=== PATIENT | female | born 1950 | race Caucasian/White ===

== ENCOUNTER 2021-06-22 07:15 | Emergency (ER) | payer OTHER ==
--- OUTSIDE RECORDS SUMMARY | 2021-06-22 07:18 | XMS REPORT | Continuity of Care Document ---
:1950 Author Organization [facility] t Address [address] [place] [address] Care Team Providers Name Role Phone BURCIAGA, Jennifer Attending Clinician Unavailable Joseph Jeter DO Attending Clinician Jeanette Pastor MD Attending Clinician Doctor Unassigned, Name Attending Clinician Unavailable Physician, Primary or Family Admitting Clinician Unavailabl e Payers Payer Name Policy Type Policy Number Effective Date Expiration Date S ource Problems Condition Condition Condition Status Onset Resolution Last Treating Co mments Source Name Details Category Date Date Treatment Clinician Date Intermitte Intermitte Disease Active 2019- U nivers nt chest nt chest 2-08 ity of pain pain 00:00: [place] [id number] Medical Branch Intermitte Intermitte Disease Active 2019- U nivers nt nt 2-08 ity of vomiting vomiting 00:00: [place] [address] Medical Branch History of History of Disease Active 2019- U nivers cardiac cardiac 2-06 [place]y [place] Hair loss Hair loss Disease Active 2019-0 Uni vers 7-01 ity of 00:00: [place] [address] Medical Branch Upper back Upper back Disease Active 2019-0 U nivers pain pain 7-01 ity of 00:00: [place] [address] Medical Branch Well woman Well woman Disease Active 2019-0 U nivers exam with exam with 1-31 ity of routine routine 00:00: [place] gynecologi gynecologi 00 Mo dical tiffanie exam tiffanie exam Branch Prediabete Prediabete Disease Active 2019-0 U nivers s s 1-27 ity of 00:00: [place] [address] Medical Branch Allergic Allergic Disease Active Unive rs rhinitis rhinitis 07-31 ity of 00:00: [place] 00 Medical [place] Cerebrovas Cerebrovas Disease Active U nivers cular cular 3- ity of small small 00:00: [place] vessel vessel 00 Medical disease disease Branch Chronic Chronic Disease Active Univers intractabl intractabl 2- it y of e e 00:00: [place] headache, headache, [facility] unspecifie unspecifie Br anch d headache d headache type type Essential Essential Disease Active Uni vers hypertensi hypertensi 2 it y of on on 00:00: [place] 00 [facility] Dry eyes Dry eyes Disease Active Unive rs ity of [facility] Vitamin D Vitamin D Disease Active Uni vers deficiency deficiency it y of [facility] Hyperlipid Hyperlipid Disease Active U nivers emia emia ity of [facility] Allergies, Adverse Reactions, Alerts Allergy Allergy Status Severity Reaction(s) Onset Inactive Treating Comm ents Source Name Type Date Date Clinician erythrom DA Active [place] [facility]- [facility] [place] [facility] 00:[facility]: d 00 [facility] [place] erythrom DA Active [place] NAUSE[facility] VOMIT[facility] 02-12 [place] [facility] 00:00: d 00 Medical [place] Social History Social Habit Start Date Stop Date Quantity Comments Source Tobacco use and 2019-06-11 2019-06-[address] [facility] exposure 00:00:00 00:00:00 [facility] Alcohol intake 2019-06-11 2019-06-11 Current University of 00:00:00 00:00:00 non-drinker of [facility] alcohol Branch (finding) Sex Ass[birth year] At [birth year] Universit y of 00:00:00 00:00:00 [facility] Smoking Status Start Date Stop Date Source Unknown if ever smoked [facility] Never smoker [facility] Medications Ordered Filled Start Stop Current Ordering Indication Dosage Frequency Signature Comments Components Source Medication Medication Date Date Medication? Clinician (SIG) Name Name eszopiclone 2018-07 Yes 2mg Take 2 mg U nivers 2 mg tablet 2-06 by mouth ity of 22:41: at [place] 29 bedtime. Medical Branch esomeprazol 2018-07 Yes 40mg Take 40 mg Univers e (NEXIUM) 2-06 by mouth ity o f 40 mg 22:41: as needed. [address] eszopiclone 2018-07 Yes 2mg Take 2 mg U nivers 2 mg tablet 2-06 by mouth ity of 22:41: at [place] [address] bedtime. Medical Branch esomeprazol 2018-07 Yes 40mg Take 40 mg Univers e (NEXIUM) 2-06 by mouth ity o f 40 mg 22:41: as needed. [address] eszopiclone 2018-07 Yes 2mg Take 2 mg U nivers 2 mg tablet 2-06 by mouth ity of 22:41: at [place] [address] bedtime. [facility] esomeprazol 2018-07 Yes 40mg Take 40 mg Univers e (NEXIUM) 2-06 by mouth ity o f 40 mg 22:41: as needed. [address] eszopiclone 2018-07 Yes 2mg Take 2 mg U nivers 2 mg tablet 2-06 by mouth ity of 22:41: at [place] [address] bedtime. [facility] Branch esomeprazol 2018-07 Yes 40mg Take 40 mg Univers e (NEXIUM) 2-06 by mouth ity o f 40 mg 22:41: as needed. [address] cholecalcif 2018-07 Yes 1{tbl} Take 1 Un jaiden elton, 2-06 tablet by ity of vitamin D3, 22:13: mouth [place] (VITAMIN D3 55 daily. Medica l ORAL) Branch cholecalcif 2018-07 Yes 1{tbl} Take 1 Un jaiden [place], 2-06 tablet by ity of vitamin D3, 22:13: mouth [place] (VITAMIN D3 55 daily. Medica l ORAL) Branch cholecalcif 2018-07 Yes 1{tbl} Take 1 Un jaiden [place], 2-06 tablet by ity of vitamin D3, 22:13: mouth [place] (VITAMIN D3 55 daily. Medica l ORAL) Branch cholecalcif 2018-07 Yes 1{tbl} Take 1 Un jaiden [place], 2-06 tablet by ity of vitamin D3, 22:13: mouth [place] (VITAMIN D3 55 daily. Medica l ORAL) Branch losartan 2018-07 Yes [id number] TAKE ONE U nivers 100 mg 2-06 (1) ity of tablet 00:00: TABLET(S) [place] 00 BY MOUTH Medical ONCE A Branch DAY. tiZANidine 2018-07 Yes [id number] 2mg Take 0.5-1 Univers 4 mg tablet 2-06 [id number] tablets by ity of 00:00: mouth [place] 00 every 8 Medical (eight) Branch hours as needed (muscle pain or spasm). losartan 2018-07 Yes [id number] TAKE ONE U nivers 100 mg 2-06 (1) ity of tablet 00:00: TABLET(S) [place] 00 BY MOUTH Medical ONCE A Branch DAY. tiZANidine 2018-07 Yes [id number] 2mg Take 0.5-1 Univers 4 mg tablet 2-06 [id number] tablets by ity of 00:00: mouth [place] 00 every 8 Medical (eight) Branch hours as needed (muscle pain or spasm). losartan 2018-07 Yes [id number] TAKE ONE U nivers 100 mg 2-06 (1) ity of tablet 00:00: TABLET(S) [place] 00 BY MOUTH Medical ONCE A Branch DAY. tiZANidine 2018-07 Yes [id number] 2mg Take 0.5-1 Univers 4 mg tablet 2-06 [id number] tablets by ity of 00:00: mouth [place] 00 every 8 Medical (eight) Branch hours as needed (muscle pain or spasm). losartan 2018-07 Yes [id number] TAKE ONE U nivers 100 mg 2-06 (1) ity of tablet 00:00: TABLET(S) [place] 00 BY MOUTH Medical ONCE A Branch DAY. tiZANidine 2018-07 Yes [id number] 2mg Take 0.5-1 Univers 4 mg tablet 2-06 [id number] tablets by ity of 00:00: mouth [place] 00 every 8 Medical (eight) Branch hours as needed (muscle pain or spasm). amLODIPine 2018-07 Yes [id number] TAKE 1 U nivers 5 mg tablet 2-01 TABLET BY ity of 00:00: MOUTH [place] 00 DAILY Medical Branch amLODIPine 2018-07 Yes [id number] TAKE 1 U nivers 5 mg tablet 2-01 TABLET BY ity of 00:00: MOUTH [place] 00 DAILY Medical Branch amLODIPine 2018-07 Yes [id number] TAKE 1 U nivers 5 mg tablet 2-01 TABLET BY ity of 00:00: MOUTH [place] 00 DAILY Medical Branch amLODIPine 2018-07 Yes [id number] TAKE 1 U nivers 5 mg tablet 2-01 TABLET BY ity of 00:00: MOUTH [place] 00 DAILY Medical Branch montelukast 2019-0 Yes [id number] 10mg Take 1 Univers 10 mg 3-29 tablet by ity of tablet 00:00: mouth [place] 00 every Medical evening. Branch montelukast 2019-0 Yes [id number] 10mg Take 1 Univers 10 mg 3-29 tablet by ity of tablet 00:00: mouth [place] 00 every Medical evening. Branch montelukast 2019-0 Yes [id number] 10mg Take 1 Univers 10 mg 3-29 tablet by ity of tablet 00:00: mouth [place] 00 every Medical evening. Branch montelust 2019- Yes [id number] 10mg Take 1 Univers 10 mg 3-29 tablet by ity of tablet 00:00: mouth [place] 00 every Medical evening. Branch No known No Univers medications ity of [facility] Immunizations Ordered Filled Immunization Date Status Comments [facility] e Immunization Name Name Influenza High Dose 2019-03-15 Completed Unive rsity of 00:00:00 [facility] Influenza High Dose 2019-03-15 Completed Unive rsity of 00:00:00 [facility] Influenza High Dose 2019-03-15 Completed Unive rsity of 00:00:00 [facility] Influenza High Dose 2019-03-15 Completed Unive rsity of 00:00:00 [facility] Influenza High Dose 2018-04-21 Completed Unive rsity of 00:00:00 [facility] Influenza High Dose 2018-04-21 Completed Unive rsity of 00:00:00 [facility] Influenza High Dose 2018-04-21 Completed Unive rsity of 00:00:00 [facility] Influenza High Dose 2018-04-21 Completed Unive rsity of 00:00:00 [facility] Typhoid, 2017-11-29 Completed University of Unspecified 00:00:00 [facility] Typhoid, 2017-11-29 Completed University of Unspecified 00:00:00 [facility] Typhoid 2017-11-29 Completed University of 00:00:00 [facility] Typhoid 2017-11-29 Completed University of 00:00:00 [facility] Influenza Virus 2017-03-30 Completed Universit y of Vaccine 00:00:00 [facility] Td 2017-03-30 Completed University of 00:00:00 [facility] Influenza Virus 2017-03-30 Completed Universit y of Vaccine 00:00:00 [facility] Td 2017-03-30 Completed University of 00:00:00 [facility] Influenza Virus 2017-03-30 Completed Universit y of Vaccine 00:00:00 [facility] Td 2017-03-30 Completed University of 00:00:00 [facility] Influenza Virus 2017-03-30 Completed Universit y of Vaccine 00:00:00 [facility] Td 2017-03-30 Completed University of 00:00:00 [facility] Influenza Virus 2014-04-06 Completed Universit y of Vaccine 00:00:00 [facility] Influenza Virus 2014-04-06 Completed Universit y of Vaccine 00:00:00 [facility] Influenza Virus 2014-04-06 Completed Universit y of Vaccine 00:00:00 [facility] Influenza Virus 2014-04-06 Completed Universit y of Vaccine 00:00:00 [facility] Influenza Virus 2013 Completed Universit y of Vaccine 00:00:00 [facility] Pneumococcal 2013 Completed University o f Polysaccharide, 00:00:00 [facility] ical PPSV23 (PNEUMOVAX) Branch Influenza Virus 2013 Completed Universit y of Vaccine 00:00:00 [facility] Pneumococcal 2013 Completed University o f Polysaccharide, 00:00:00 [facility] ical PPSV23 (PNEUMOVAX) Branch Influenza Virus 2013 Completed Universit y of Vaccine 00:00:00 [facility] Pneumococcal 2013 Completed University o f Polysaccharide, 00:00:00 [facility] ical PPSV23 (PNEUMOVAX) Branch Influenza Virus 2013 Completed Universit y of Vaccine 00:00:00 [facility] Pneumococcal 2013 Completed University o f Polysaccharide, 00:00:00 [facility] ical PPSV23 (PNEUMOVAX) Branch Zoster(Zostavax)( 2011-08-05 Completed Unive rsity of ingles) 00:00:00 [facility] Zoster(Zostavax)( 2011-08-05 Completed Unive rsity of ingles) 00:00:00 [facility] Zoster(Zostavax)( 2011-08-05 Completed Unive rsity of ingles) 00:00:00 [facility] Zoster(Zostavax)( 2011-08-05 Completed Unive rsity of ingles) 00:00:00 [facility] Influenza Virus 2011-05-19 Completed Universit y of Vaccine 00:00:00 [facility] Influenza Virus 2011-05-19 Completed Universit y of Vaccine 00:00:00 [facility] Influenza Virus 2011-05-19 Completed Universit y of Vaccine 00:00:00 [facility] Influenza Virus 2011-05-19 Completed Universit y of Vaccine 00:00:00 [facility] Influenza Virus 2010-03-13 Completed Universit y of Vaccine 00:00:00 [facility] Influenza Virus 2010-03-13 Completed Universit y of Vaccine 00:00:00 [facility] Influenza Virus 2010-03-13 Completed Universit y of Vaccine 00:00:00 [facility] Influenza Virus 2010-03-13 Completed Universit y of Vaccine 00:00:00 [facility] Influenza Virus 2010-03-13 Completed Universit y of Vaccine 00:00:00 [facility] Hep B, Adol or Pedi 2006-07-11 Completed Unive rsity of Dosage 00:00:00 [facility] Hep B, Adol or Pedi 2006-07-11 Completed Unive rsity of Dosage 00:00:00 [facility] [place] [facility] Branch Hep B, Adol or Pedi 2006-07-11 Completed Unive rsity of Dosage 00:00:00 [facility] [place] [facility] Branch Hep B, Adol or Pedi 2006-07-11 Completed Unive rsity of Dosage 00:00:00 [facility] Hep B, Adol or Pedi 2006-07-11 Completed Unive rsity of Dosage 00:00:00 [facility] Hep B, Adol or Pedi 2005-09-29 Completed Unive rsity of Dosage 00:00:00 [facility] Mauritanian 2005-09-29 Completed University of [facility] Ad[facility] Pedi 2005-09-29 Completed Unive rsity of Dosage 00:00:00 [facility] Mauritanian 2005-09-29 Completed University of Encephalitis 00:00:00 [place] [facility] Branch Hep B, Adol or Pedi 2005-09-29 Completed Unive rsity of Dosage 00:00:00 [facility] Mauritanian 2005-09-29 Completed University of Encephalitis 00:00:00 [place] Medica l Branch Hep B, Adol or Pedi 2005-09-29 Completed Unive rsity of Dosage 00:00:00 [facility] 2005-09-29 Completed University of Encephalitis 00:00:00 [place] [facility] Branch Hep B, Adol or Pedi 2005-09-29 Completed Unive rsity of Dosage 00:00:00 [facility] 2005-09-29 Completed University of Encephalitis 00:00:00 [place] [facility] Polio (IPV/OPV) 2005-09-03 Completed Universit y of 00:00:00 [facility] 2005-09-03 Completed University of Encephalitis 00[facility]00:00 [facility] B, Adol or Pedi 2005-09-03 Completed Unive rsity of Dosage 00:00:00 [facility] Polio (IPV/OPV) 2005-09-03 Completed Universit y of 00:00:00 [facility] 2005-09-03 Completed University of Encephalitis 00:00:00 [facility] Hep B, Adol or Pedi 2005-09-03 Completed Unive rsity of Dosage 00:00:00 [facility] Polio (IPV/OPV) 2005-09-03 Completed Universit y of 00:00:00 [facility] 2005-09-03 Completed University of Encephalitis 00:00:00 [facility] Hep B, Adol or Pedi 2005-09-03 Completed Unive rsity of Dosage 00:00:00 [facility] Polio (IPV/OPV) 2005-09-03 Completed Universit y of 00:00:00 [facility] 2005-09-03 Completed University of Encephalitis 00:00:00 [place] Medica l Branch Hep B, Adol or Pedi 2005-09-03 Completed Unive rsity of Dosage 00:00:00 [facility] Polio (IPV/OPV) 2005-09-03 Completed Universit y of 00:00:00 [facility] 2005-09-03 Completed University of Encephalitis 00:00:00 [place] Medica l Branch Hep B, Adol or Pedi 2005-09-03 Completed Unive rsity of Dosage 00:00:00 [facility] Td 2005-08-05 Completed University of 00:00:00 [facility] Typhoid, 2005-08-05 Completed University of Unspecified 00:00:00 [place] [facility] HEPATITIS A 2005-08-05 Completed University of 00:00:00 [facility] [place] [facility] Branch Hep B, Adol or Pedi 2005-08-05 Completed Unive rsity of Dosage 00:00:00 [place] [facility] Td 2005-08-05 Completed University of 00:00:00 [place] [facility] Typhoid, 2005-08-05 Completed University of Unspecified 00:00:00 [facility] [place] [facility] Formulation Branch HEPATITIS A 2005-08-05 Completed University of 00:00:00 [facility] [place] [facility] Branch Hep B, Adol or Pedi 2005-08-05 Completed Unive rsity of Dosage 00:00:00 [place] [facility] Td 2005-08-05 Completed University of 00:00:00 [facility] [place] [facility] Branch Typhoid, 2005-08-05 Completed University of Unspecified 00:00:00 [facility] [place] [facility] Formulation Branch HEPATITIS A 2005-08-05 Completed University of 00:00:00 [facility] [place] [facility] Branch Hep B, Adol or Pedi 2005-08-05 Completed Unive rsity of Dosage 00:00:00 [facility] Td 2005-08-05 Completed University of 00:00:00 [facility] [place] [facility] Branch Typhoid 2005-08-05 Completed University of 00:00:00 [facility] [place] [facility] Branch HEPATITIS A 2005-08-05 Completed University of 00:00:00 [facility] [place] [facility] Branch Hep B, Adol or Pedi 2005-08-05 Completed Unive rsity of Dosage 00:00:00 [facility] [place] [facility] Branch Td 2005-08-05 Completed University of 00:00:00 [facility] [place] [facility] Branch Typhoid 2005-08-05 Completed University of 00:00:00 [facility] [place] [facility] Branch HEPATITIS A 2005-08-05 Completed University of 00:00:00 [facility] [place] [facility] Branch Hep B, Adol or Pedi 2005-08-05 Completed Unive rsity of Dosage 00:00:00 [place] [facility] Td 1997-12-06 Completed University of 00:00:00 [place] [facility] HEPATITIS A 1997-12-06 Completed University of 00:00:00 [place] [facility] Td 1997-12-06 Completed University of 00:00:00 [place] [facility] HEPATITIS A 1997-12-06 Completed University of 00:00:00 [place] [facility] Td 1997-12-06 Completed University of 00:00:00 [place] [facility] HEPATITIS A 1997-12-06 Completed University of 00:00:00 [place] [facility] Td 1997-12-06 Completed University of 00:00:00 [place] [facility] HEPATITIS A 1997-12-06 Completed University of 00:00:00 [facility] [place] [facility] Branch Td 1997-12-06 Completed University of 00:00:00 [facility] HEPATITIS A 1997-12-06 Completed University of 00:00:00 [facility] [place] [facility] Branch Cholera, Live 1997-11-29 Completed University of Attenuated 00:00:00 [facility] [place] [facility] Branch Cholera, Live 1997-11-29 Completed University of Attenuated 00:00:00 [place] [facility] Cholera, Live 1997-11-29 Completed University of Attenuated 00:00:00 [facility] [place] [facility] Branch Cholera, Live 1997-11-29 Completed University of Attenuated 00:00:00 [facility] [place] [facility] Branch Cholera, Live 1997-11-29 Completed University of Attenuated 00:00:00 [facility] Procedures Procedure Date / Time Performing Clinician Source Performed BI SCREENING 2019-08-07 15:11:00 Nighat Pastor [facility] TOMOSYNTHESIS BILATERAL Medical Branch ASSIGNMENT OF BENEFITS 2019-08-07 14:38:36 Doctor Unassigned, No [facility] Medical Branch AUTHORIZATION FOR 2010-10-30 05:01:00 Doctor Unassigned, No [facility] RELEASE OF [facility] Name Medical Branch Encounters Start End Encounter Admission Attending Care Care Encounter Source Date/Time Date/Time Type Type Clinicians Facility Department ID 2020-10-07 2020-10-07 Outpatient CECILE PATRICA [facility] [id number] [facility] 12:00:00 12:00:00 [place] [id number] [facility] 2020-09-09 2020-09-09 Patient [facility] [id number] Univers 00:00:00 00:00:00 Outreach Tee PRIMARY [id number] i ty of [facility] [id number] [id number] Mo dical 388 Branch 2020-01-30 2020-01-30 Telephone [facility] [id number] Univers 00:00:00 00:00:00 Nighat Cooper [id number] ity of [id number] [place] [id number] Mo dical nal 044 Branch Building 2019-08-07 2019-08-07 [facility] [id number] Univers 08:40:00 23:59:00 Encounter Nighat Cooper [id number] [place]y [id number] [id number] [facility] 800 Branch 2019-08-07 2019-08-07 Orders Doctor BRAULIO [id number] Univers 00:00:00 00:00:00 Only Unassigned, MARIANELA [id number] ity of [facility] [id number] Yemi as [phone] [facility] 009 Branch 2010-10-30 2010-10-30 Orders Doctor BRAULIO [id number] Univers 00:00:00 00:00:00 Only Unassigned, MARIANELA [id number] ity of [facility] [id number] Yemi as [phone] [facility] 009 Branch Results Test Description Test Time Test Comments Results Result [facility] e Comments BI SCREENING Examination:BI Universi ty of TOMOSYNTHESIS 3 SCREENING [place] Medic al BILATERAL 21:22:07 TOMOSYNTHESIS Branch BILATERAL History:Patient is 69 year old and is seen for: ?69yo f who is due for screening mammogram.. Computer-aided detection (CAD) utilized. Comparisons : None available Findings:The breasts have scattered areas of fibroglandular density. There is no evidence of suspicious masses, calcifications, or other abnormal findings. Impression:No mammographic evidence of malignancy. Recommendation:Kateryna harden mammographic follow-up BI-RADS Category: Both 1 - Negative
[2021-06-22] MEDS ORDERED: DIPHENHYDRAMINE 50 MG/ML VIAL ONE (07:32)
[2021-06-22] MEDS ORDERED: FAMOTIDINE 20 MG/2 ML VIAL IV ONE (07:32)
[2021-06-22] MEDS ORDERED: METHYLPREDNISOLONE 125 MG INJ ONE (07:32)
[2021-06-22] MEDS ORDERED: hydrOXYzine HCL 25 MG TAB ONE (08:48)
--- NOTE | 2021-06-22 09:20 | ER ---
Nurse's Notes [facility] Name: Kylee Jaimes Age: 71 yrs Sex: Female : 1950 Arrival Date: 06/22/2021 Time: 07:16 Bed 15 Private MD: Diagnosis: Urticaria, unspecified Presentation: 06/22 07:26 Chief complaint: Patient states: itchy rash all over body that began Th morning. ss Coronavirus screen: Client denies travel out of the [place] in the last 14 days. Ebola Screen: Patient denies exposure to infectious person. Patient denies travel to an Ebola-affected area in the 21 days before illness onset. Onset: The symptoms/episode began/occurred 3 day(s) ago. Anaphylaxis evaluation, no signs or symptoms of anaphylaxis were noted. Initial Sepsis Screen: Does the patient meet any 2 criteria? No. Patient's initial sepsis screen is negative. Does the patient have a suspected source of infection? No. Patient's initial sepsis screen is negative. Risk Assessment: Do you want to hurt yourself or someone else? Patient reports no desire to harm self or others. Onset of symptoms was June 19, 2021. 07:26 Method Of Arrival: Ambulatory ss 07:26 Acuity: APRIL 4 ss Historical: - Allergies: 07:27 Erythromycin; ss - PMHx: 07:27 Hypertension; ss - Immunization history:: Client reports receiving the 2nd dose of the Covid vaccine. - Social history:: Smoking status: Patient denies any tobacco usage or history of. - Family history:: not pertinent. - Hospitalizations: : No recent hospitalization is reported. Screenin:30 Abuse screen: Denies threats or abuse. Denies injuries from another. Nutritional ss screening: No deficits noted. Tuberculosis screening: Never had TB. Fall Risk None identified. Assessment: 07:30 General: Appears uncomfortable, Behavior is calm, cooperative. Pain: Denies pain. ss Neuro: Level of Consciousness is awake, alert, obeys commands, Oriented to person, place, time, situation. Cardiovascular: Capillary refill < 3 seconds is brisk in bilateral fingers. Respiratory: Airway is patent Respiratory effort is even, unlabored, Respiratory pattern is regular, symmetrical, Breath sounds are clear bilaterally. GI: No signs and/or symptoms were reported involving the gastrointestinal system. :. EENT: Oral mucosa is moist. Derm: Skin is intact, is healthy with good turgor, Skin is dry, Skin is pink, warm \T\ dry. normal, Rash noted that is itchy, red, raised, on back, chest, pelvis, right arm, left arm, right leg and left leg. 08:11 Reassessment: Patient is alert, oriented x 3, equal unlabored respirations, skin ss warm/dry/pink. at bedside. Pt reports that her itching has not improved. Respiratory: Airway is patent Respiratory effort is even, unlabored, Respiratory pattern is regular, symmetrical. Musculoskeletal: Circulation, motion, and sensation intact. Range of motion: intact in all extremities, Swelling absent. 09:27 Reassessment: Patient appears in no apparent distress at this time. Patient and/or ss family updated on plan of care and expected duration. Pain level reassessed. Pt reports that she has some mild improvement in symptoms/ itching. Vital Signs: 07:26 BP 133 / 73; Pulse 83; Resp 17; Temp 97.5(TE); Pulse Ox 100% ; Weight 83.91 kg; Height ss 5 ft. 3 in. (160.02 cm); Pain 0/10; 08:11 BP 121 / 71; Pulse 68; Resp 17; Pulse Ox 99% on R/A; ss 07:26 Body Mass Index 32.77 (83.91 kg, 160.02 cm) ED Course: 07:16 Patient arrived in ED. ds1 07:17 Kameron Lira MD is Attending Physician. rn 07:27 Triage completed. ss 07:27 Arm band placed on right wrist. ss 07:29 Wilfredo Swift, MAC is Primary Nurse. bp 07:38 Inserted saline lock: 22 gauge in right antecubital area, using aseptic technique. ss 07:41 Patient has correct armband on for positive identification. Bed in low position. Call mh5 light in reach. Side rails up X 1. Adult w/ patient. Pulse ox on. NIBP on. 09:27 No provider procedures requiring assistance completed. IV discontinued, intact, ss bleeding controlled, No redness/swelling at site. Pressure dressing applied. Administered Medications: 07:42 Drug: SOLU-Medrol (methylPrednisoLONE) 125 mg Route: IVP; Site: right antecubital; ss 08:50 Follow up: Response: No adverse reaction; No change in condition ss 07:44 Drug: Pepcid (famotidine) 20 mg Route: IVP; Site: right antecubital; ss 09:26 Follow up: Response: No adverse reaction; No change in condition ss 07:46 Drug: Benadryl (diphenhydrAMINE) 50 mg Route: IVP; Site: right antecubital; ss 09:26 Follow up: Response: No adverse reaction; No change in condition ss 08:50 Drug: hydrOXYzine 50 mg Route: PO; ss 09:26 Follow up: Response: No adverse reaction; No adverse reaction, patient reports some ss improvement Outcome: 09:20 Discharge ordered by . rn 09:27 Discharged to home ambulatory. 09:27 Condition: good 09:27 Discharge instructions given to patient, family, Instructed on discharge instructions, follow up and referral plans. medication usage, Demonstrated understanding of instructions, follow-up care, medications, Prescriptions given X 2. 09:28 Patient left the ED. ss Signatures: Leticia Wolf ds1 Kameron Lira MD MD rn Smirch, Shelby, RN RN Zoe Alejandro 5 Wilfredo Swift RN RN bp
--- NOTE | 2021-06-22 09:20 | EDPHYS ---
Physician Documentation [facility] Name: Kylee Jaimes Age: 71 yrs Sex: Female : 1950 Arrival Date: 06/22/2021 Time: 07:16 Bed 15 Private MD: ED Physician Kameron Lira HPI: 06/22 07:30 This 71 yrs old Female presents to ER via Ambulatory with complaints of Hives. rn 07:30 The patient presents with itching, rash. Onset: The symptoms/episode began/occurred 3 rn day(s) ago. Associated signs and symptoms: Pertinent positives: hives, rash, Pertinent negatives: abdominal pain, chest pain, dysphagia, fever, Light headed shortness of breath, swelling, Syncope vomiting. Possible causes: The patient has no known obvious cause for the symptoms. At home the patient or guardian has treated the symptoms with Benadryl. Severity of symptoms: At their worst the symptoms were moderate in the emergency department the symptoms are unchanged. The patient has experienced a previous episode. The patient has not recently seen a physician. Patient states rash, diffuse, began 3 days ago. Has multiple allergies to environmental allergens in the past. Does not know specifically what could have triggered this. Began has a rash on the torso and spread elsewhere. No shortness of breath/chest pain/abdominal pain/swelling. No rash in eyes or mucous membranes.. Historical: - Allergies: 07:27 Erythromycin; ss - PMHx: 07:27 Hypertension; ss - Immunization history:: Client reports receiving the 2nd dose of the Covid vaccine. - Social history:: Smoking status: Patient denies any tobacco usage or history of. - Family history:: not pertinent. - Hospitalizations: : No recent hospitalization is reported. ROS: 07:30 Constitutional: Negative for fever, chills, and weight loss, Eyes: Negative for injury, rn pain, redness, and discharge, ENT: Negative for injury, pain, and discharge, Neck: Negative for injury, pain, and swelling, Cardiovascular: Negative for chest pain, palpitations, and edema, Respiratory: Negative for shortness of breath, cough, wheezing, and pleuritic chest pain, Abdomen/GI: Negative for abdominal pain, nausea, vomiting, diarrhea, and constipation, Back: Negative for injury and pain, : Negative for injury, bleeding, discharge, and swelling, MS/Extremity: Negative for injury and deformity, Skin: + diffuse rash Neuro: Negative for headache, weakness, numbness, tingling, and seizure. Exam: 07:30 Constitutional: This is a well developed, well nourished patient who is awake, alert, rn and in no acute distress. Head/Face: Normocephalic, atraumatic. Eyes: Periorbital areas with no swelling, redness, or edema. ENT: No oral rash or lesions, no tongue swelling, no stridor Cardiovascular: Regular rate and rhythm. No pulse deficits. Respiratory: No increased work of breathing, no retractions or nasal flaring. Skin: Diffuse urticaria on torso and extremities, no mucous membrane involvement, no bullae, no sloughing of skin. MS/ Extremity: Pulses equal, no cyanosis. Neuro: Awake and alert, GCS 15 Vital Signs: 07:26 BP 133 / 73; Pulse 83; Resp 17; Temp 97.5(TE); Pulse Ox 100% ; Weight 83.91 kg; Height ss 5 ft. 3 in. (160.02 cm); Pain 0/10; 08:11 BP 121 / 71; Pulse 68; Resp 17; Pulse Ox 99% on R/A; ss 07:26 Body Mass Index 32.77 (83.91 kg, 160.02 cm) MDM: 07:17 Patient medically screened. rn 09:19 Differential diagnosis: urticaria. Data reviewed: vital signs, nurses notes, and as a rn result, I will discharge patient. Counseling: I had a detailed discussion with the patient and/or guardian regarding: the historical points, exam findings, and any diagnostic results supporting the discharge/admit diagnosis, the need for outpatient follow up, to return to the emergency department if symptoms worsen or persist or if there are any questions or concerns that arise at home. Response to treatment: the patient's symptoms have mildly improved after treatment, and as a result, I will discharge patient. Special discussion: I discussed with the patient/guardian in detail that at this point there is no indication for admission to the hospital. It is understood, however, that if the symptoms persist or worsen the patient needs to return immediately for re-evaluation. 06/22 07:28 Order name: IV Start; Complete Time: 07:48 rn Administered Medications: 07:42 Drug: SOLU-Medrol (methylPrednisoLONE) 125 mg Route: IVP; Site: right antecubital; ss 08:50 Follow up: Response: No adverse reaction; No change in condition ss 07:44 Drug: Pepcid (famotidine) 20 mg Route: IVP; Site: right antecubital; ss 09:26 Follow up: Response: No adverse reaction; No change in condition ss 07:46 Drug: Benadryl (diphenhydrAMINE) 50 mg Route: IVP; Site: right antecubital; ss 09:26 Follow up: Response: No adverse reaction; No change in condition ss 08:50 Drug: hydrOXYzine 50 mg Route: PO; ss 09:26 Follow up: Response: No adverse reaction; No adverse reaction, patient reports some ss improvement Disposition Summary: 06/22/21 09:20 Discharge Ordered Location: Home rn Problem: new rn Symptoms: have improved rn Condition: Stable rn Diagnosis - Urticaria, unspecified rn Followup: rn - With: Private Physician - When: As needed - Reason: Recheck today's complaints, Re-evaluation by your physician Discharge Instructions: - Discharge Summary Sheet matt Marquez rn Forms: - Medication Reconciliation Form rn - Thank You Letter rn - Antibiotic music industry internship - Prescription Opioid Use rn Prescriptions: - Hydroxyzine HCl 50 mg Oral Tablet - take 1 tablet by ORAL route every 8 hours As needed; 20 tablet; Refills: 0, rn Product Selection Permitted - Prednisone 20 mg Oral Tablet - take 3 tablets by ORAL route once daily for 5 days; 15 tablet; Refills: 0, rn Product Selection Permitted Signatures: Kameron Lira MD MD rn Smirch, Shelby, RN RN ss
[2021-06-22 09:36] VITALS: TEMP 97.5
[2021-06-22 09:37] VITALS: BP 121/71; O2SAT 99
== END 2021-06-22 09:28 | disposition home or self-care (01) ==
LOC: ER 07:15
DX: L50.9 Urticaria, unspecified (principal); I10 Essential (primary) hypertension; Z88.3 Allergy status to other anti-infective agents
CPT/HCPCS: 96375; 96374; 99284; J1200; J2930

== ENCOUNTER 2021-06-23 01:27 | Emergency (ER) | payer OTHER ==
--- OUTSIDE RECORDS SUMMARY | 2021-06-23 01:32 | XMS REPORT | Continuity of Care Document ---
:1950 Author Organization [facility] t Address [address] [place] [address] Dr. Cor[address] [place] [address] Care Team Providers Name Role Phone Jennifer BURCIAGA Attending Clinician Unavailable Joseph Jeter DO Attending [...] chest 2-08 ity of pain pain 00:00: [place] [address] Medical Branch Intermitte Intermitte Disease Active 2019- U nivers nt nt 2-08 ity of vomiting vomiting 00:00: [place] [address] Medical Branch History of History of Disease Active 2019- U nivers cardiac cardiac 2-06 ity of arrhythmia arrhythmia [place] Hair loss Hair loss Disease Active 2019-0 Uni vers 7-01 ity of 00:00: [place] [address] Medical Branch Upper back Upper back Disease Active 2019-0 U nivers pain pain 7-01 ity of 00:00: [place] [address] Medical Branch Well woman Well woman Disease Active 2019-0 U nivers exam with exam with 1-31 ity of routine routine 00:00: [place] gynecologi gynecologi 00 Md dical tiffanie exam tiffanie exam Branch Prediabete Prediabete Disease Active 2019-0 U nivers s s 1-27 ity of 00:00: [place] [address] Medical Branch Allergic Allergic Disease Active Unive rs rhinitis rhinitis 07-31 ity of 00:00: [place] 00 Medical Branch Cerebrovas Cerebrovas Disease Active U nivers cular cular 3- ity of small small 00:00: [place] vessel vessel 00 Medical disease disease Branch Chronic Chronic Disease Active Univers intractabl intractabl 2 it y of e e 00:00: [place] headache, headache, 00 [facility] unspecifie unspecifie Br anch d headache d headache type type Essential Essential Disease Active Uni vers hypertensi hypertensi 2 it y of on on 00:00: [place] 00 Medical [place] Dry eyes Dry eyes Disease Active Unive rs ity of [facility] Vitamin D Vitamin D Disease Active Uni vers deficiency deficiency it y of [facility] Hyperlipid Hyperlipid Disease Active U nivers emia emia ity of [facility] Allergies, Adverse Reactions, Alerts Allergy Allergy Status Severity Reaction(s) Onset Inactive Treating Comm ents Source Name Type Date Date Clinician erythrom DA Active HI 2008- [facility] [place] [facility] 00:[facility]: d 00 [facility] [place] erythrom DA Active [place] NAUSEA AND [facility] VOMITING [facility] [place] [facility] 00:[facility]: [facility] Social History Social Habit Start Date Stop Date Quantity Comments Source Tobacco use and 2019-06-11 2019-06-11 Never used Universit y of exposure 00:00:00 00:00:00 [facility] Alcohol intake 2019-06-11 2019-06-11 Current University of 00:00:00 00:00:00 non-drinker of [facility] alcohol Branch (finding) Sex Ass[birth year] At [birth year] Universit y of 00:00:00 00:00:00 [facility] Smoking Status Start Date Stop Date Source Unknown if ever smoked [facility] y [facility] Never smoker [facility] Medications Ordered Filled Start Stop Current Ordering Indication Dosage Frequency Signature Comments Components Source Medication Medication Date Date Medication? Clinician (SIG) Name Name eszopiclone 2018-07 Yes 2mg Take 2 mg U nivers 2 mg tablet 2-06 by mouth ity of 22:41: at [place] 29 bedtime. Medical Branch esomeprazol 2018-07 Yes 40mg Take 40 mg Univers e (NEXIUM) 2-06 by mouth ity o f 40 mg 22:41: as needed. [address] eszopiclone 2018-07 Yes 2mg Take 2 mg U nivers 2 mg tablet 2-06 by mouth ity of 22:41: at [place] [address] bedtime. Medical Branch esomeprazol 2018-07 Yes 40mg Take 40 mg Univers e (NEXIUM) 2-06 by mouth ity o f 40 mg 22:41: as needed. [address] eszopiclone 2018-07 Yes 2mg Take 2 mg U nivers 2 mg tablet 2-06 by mouth ity of 22:41: at [place] [address] bedtime. [facility] esomeprazol 2018-07 Yes 40mg Take 40 mg Univers e (NEXIUM) 2-06 by mouth ity o f 40 mg 22:41: as needed. [facility] 29 [facility] eszopiclone 2018-07 Yes 2mg Take 2 mg U nivers 2 mg tablet 2-06 by mouth ity of 22:41: at [place] [address] bedtime. [facility] Branch esomeprazol 2018-07 Yes 40mg Take 40 mg Univers e (NEXIUM) 2-06 by mouth ity o f 40 mg 22:41: as needed. [address] cholecalcif 2018-07 Yes 1{tbl} Take 1 [...] Medica l ORAL) Branch losartan 2018-07 Yes [id number] TAKE ONE U nivers 100 mg 2-06 (1) ity of tablet 00:00: TABLET(S) [place] 00 BY MOUTH Medical ONCE A Branch DAY. tiZANidine 2018-07 Yes [id number] 2mg Take 0.5-1 Univers 4 mg tablet 2-06 [id number] tablets by ity of 00:00: mouth [place] 00 every 8 Medical (eight) Branch hours as needed (muscle pain or spasm). losartan 2018-07 Yes [id number] TAKE ONE U nivers 100 mg 2-06 (1) ity of tablet 00:00: TABLET(S) [place] 00 BY MOUTH Medical ONCE A Branch DAY. tiZANidine 2018-07 Yes [id number] 2mg Take 0.5-1 Univers 4 mg tablet 2-06 [id number] tablets by ity of 00:00: mouth [place] 00 every 8 Medical (eight) Branch hours as needed (muscle pain or spasm). losartan 2018-07 Yes [id number] TAKE ONE U nivers 100 mg 2-06 (1) ity of tablet 00:00: TABLET(S) [place] 00 BY MOUTH Medical ONCE A Branch DAY. tiZANidine 2018-07 Yes [id number] 2mg Take 0.5-1 Univers 4 mg tablet 2-06 [id number] tablets by ity of 00:00: mouth [place] 00 every 8 Medical (eight) Branch hours as needed (muscle pain or spasm). losartan 2018-07 Yes [id number] TAKE ONE U nivers 100 mg 2-06 (1) ity of tablet 00:00: TABLET(S) [place] 00 BY MOUTH Medical ONCE A Branch DAY. tiZANidine 2018-07 Yes [id number] 2mg Take 0.5-1 Univers 4 mg tablet 2-06 [id number] tablets by ity of 00:00: mouth [place] 00 every 8 Medical (eight) Branch hours as needed (muscle pain or spasm). amLODIPine 2018-07 Yes [id number] TAKE 1 U nivers 5 mg tablet 2-01 TABLET BY ity of 00:00: MOUTH [place] 00 DAILY Medical Branch amLODIPine 2018-07 Yes [id number] TAKE 1 U nivers 5 mg tablet 2-01 TABLET BY ity of 00:00: MOUTH [place] 00 DAILY Medical Branch amLODIPine 2018-07 Yes [id number] TAKE 1 U nivers 5 mg tablet 2-01 TABLET BY ity of 00:00: MOUTH [place] 00 DAILY Medical Branch amLODIPine 2018-07 Yes [id number] TAKE 1 U nivers 5 mg tablet 2-01 TABLET BY ity of 00:00: MOUTH [place] 00 DAILY Medical Branch montelukast 2019-0 Yes [id number] 10mg Take 1 Univers 10 mg 3-29 tablet by ity of tablet 00:00: mouth [place] 00 every Medical evening. Branch montelust 2019-0 Yes [id number] 10mg Take 1 Univers 10 mg 3-29 tablet by ity of tablet 00:00: mouth [place] 00 every Medical evening. Branch [facility]-0 Yes [id number] 10mg Take 1 Univers 10 mg 3-29 tablet by ity of tablet 00:00: mouth [place] 00 every Medical evening. Branch [facility] 2019-0 Yes [id number] 10mg Take 1 Univers 10 mg 3-29 tablet by ity of tablet 00:00: mouth [place] 00 every Medical evening. Branch No known No Univers medications ity of [facility] [place] [facility] Immunizations Ordered Filled Immunization Date Status Comments [facility] e Immunization Name Name Influenza High Dose 2019-03-15 Completed Unive rsity of 00:00:00 [facility] [place] [facility] Influenza High Dose 2019-03-15 Completed Unive rsity of 00:00:00 [facility] [place] [facility] Influenza High Dose 2019-03-15 Completed Unive rsity of 00:00:00 [facility] [place] [facility] Influenza High Dose 2019-03-15 Completed Unive rsity of 00:00:00 [facility] [place] [facility] Influenza High Dose 2018-04-21 Completed Unive rsity of 00:00:00 [facility] [place] [facility] Influenza High Dose 2018-04-21 Completed Unive rsity of 00:00:00 [facility] [place] [facility] Influenza High Dose 2018-04-21 Completed Unive rsity of 00:00:00 [facility] [place] [facility] Influenza High Dose 2018-04-21 Completed Unive rsity of 00:00:00 [facility] [place] [facility] Typhoid, 2017-11-29 Completed University of Unspecified 00:00:00 [facility] Typhoid, 2017-11-29 Completed University of Unspecified 00:00:00 [facility] Typhoid 2017-11-29 Completed University of 00:00:00 [facility] [place] [facility] Typhoid 2017-11-29 Completed University of 00:00:00 [facility] [place] [facility] Influenza Virus 2017-03-30 Completed Universit y of Vaccine 00:00:00 [facility] Td 2017-03-30 Completed University of 00:00:00 [facility] [place] [facility] Influenza Virus 2017-03-30 Completed Universit y of Vaccine 00:00:00 [facility] [place] [facility] Td 2017-03-30 Completed University of 00:00:00 [facility] [place] [facility] Influenza Virus 2017-03-30 Completed Universit y of Vaccine 00:00:00 [facility] [place] [facility] Td 2017-03-30 Completed University of 00:00:00 [facility] [place] [facility] Influenza Virus 2017-03-30 Completed Universit y of Vaccine 00:00:00 [facility] [place] [facility] Td 2017-03-30 Completed University of 00:00:00 [facility] [place] [facility] Influenza Virus 2014-04-06 Completed Universit y of Vaccine 00:00:00 [facility] [place] [facility] Influenza Virus 2014-04-06 Completed Universit y of Vaccine 00:00:00 [facility] [place] [facility] Influenza Virus 2014-04-06 Completed Universit y of Vaccine 00:00:00 [facility] [place] [facility] Influenza Virus 2014-04-06 Completed Universit y of Vaccine 00:00:00 [facility] [place] [facility] Influenza Virus 2013 Completed Universit y of Vaccine 00:00:00 [facility] [place] [facility] Pneumococcal 2013 Completed University o f Polysaccharide, 00:00:00 [facility] ical PPSV23 (PNEUMOVAX) Branch Influenza Virus 2013 Completed Universit y of Vaccine 00:00:00 [facility] [place] [facility] Pneumococcal 2013 Completed University o f Polysaccharide, 00:00:00 [facility] ical PPSV23 (PNEUMOVAX) Branch Influenza Virus 2013 Completed Universit y of Vaccine 00:00:00 [facility] [place] [facility] Pneumococcal 2013 Completed University o f Polysaccharide, 00:00:00 [facility] ical PPSV23 (PNEUMOVAX) Branch Influenza Virus 2013 Completed Universit y of Vaccine 00:00:00 [facility] [place] [facility] Pneumococcal 2013 Completed University o f Polysaccharide, 00:00:00 [facility] ical PPSV23 (PNEUMOVAX) Branch Zoster(Zostavax)( 2011-08-05 Completed Unive rsity of ingles) 00:00:00 [facility] [place] [facility] Zoster(Zostavax)( 2011-08-05 Completed Unive rsity of ingles) 00:00:00 [facility] [place] [facility] Zoster(Zostavax)( 2011-08-05 Completed Unive rsity of ingles) 00:00:00 [facility] [place] [facility] Zoster(Zostavax)( 2011-08-05 Completed Unive rsity of ingles) 00:00:00 [facility] [place] [facility] Influenza Virus 2011-05-19 Completed Universit y of Vaccine 00:00:00 [facility] [place] [facility] Influenza Virus 2011-05-19 Completed Universit y of Vaccine 00:00:00 [facility] [place] [facility] Influenza Virus 2011-05-19 Completed Universit y of Vaccine 00:00:00 [facility] [place] [facility] Influenza Virus 2011-05-19 Completed Universit y of Vaccine 00:00:00 [facility] [place] [facility] Influenza Virus 2010-03-13 Completed Universit y of Vaccine 00:00:00 [facility] [place] [facility] Influenza Virus 2010-03-13 Completed Universit y of Vaccine 00:00:00 [facility] [place] [facility] Influenza Virus 2010-03-13 Completed Universit y of Vaccine 00:00:00 [facility] [place] [facility] Influenza Virus 2010-03-13 Completed Universit y of Vaccine 00:00:00 [facility] [place] [facility] Influenza Virus 2010-03-13 Completed Universit y of Vaccine 00:00:00 [facility] [place] [facility] Hep B, Adol or Pedi 2006-07-11 Completed Unive rsity of Dosage 00:00:00 [facility] [place] [facility] Hep B, Adol or Pedi 2006-07-11 Completed Unive rsity of Dosage 00:00:00 [facility] [place] [facility] Hep B, Adol or Pedi 2006-07-11 Completed Unive rsity of Dosage 00:00:00 [facility] Branch Hep B, Adol or Pedi 2006-07-11 Completed Unive rsity of Dosage 00:00:00 [facility] Hep B, Adol or Pedi 2006-07-11 Completed Unive rsity of Dosage 00:00:00 [facility] Hep B, Adol or Pedi 2005-09-29 Completed Unive rsity of Dosage 00:00:00 [facility] Sri Lankan 2005-09-29 Completed University of [facility] 00:00[facility], Adol or Pedi 2005-09-29 Completed Unive rsity of Dosage 00:00:00 [facility] Sri Lankan 2005-09-29 Completed University of Encephalitis 00:00:00 [place] [facility] Hep B, Adol or Pedi 2005-09-29 Completed Unive rsity of Dosage 00:00:00 [facility] [place] [facility] Sri Lankan 2005-09-29 Completed University of Encephalitis 00:00:00 [place] [facility] Hep B, Adol or Pedi 2005-09-29 Completed Unive rsity of Dosage 00:00:00 [facility] 2005-09-29 Completed University of Encephalitis 00:00:00 [facility] Hep B, Adol or Pedi 2005-09-29 Completed Unive rsity of Dosage 00:00:00 [facility] 2005-09-29 Completed University of Encephalitis 00:00:00 [facility] Polio (IPV/OPV) 2005-09-03 Completed Universit y of 00:00:00 [facility] 2005-09-03 Completed University of Encephalitis 00:00:00 [facility] Hep B, Adol or Pedi 2005-09-03 Completed Unive rsity of Dosage 00:00:00 [facility] [place] [facility] Polio (IPV/OPV) 2005-09-03 Completed Universit y of 00:00:00 [facility] 2005-09-03 Completed University of Encephalitis 00:00:00 [facility] Hep B, Adol or Pedi 2005-09-03 Completed Unive rsity of Dosage 00:00:00 [facility] [place] [facility] Polio (IPV/OPV) 2005-09-03 Completed Universit y of 00:00:00 [facility] 2005-09-03 Completed University of Encephalitis 00:00:00 [facility] Hep B, Adol or Pedi 2005-09-03 Completed Unive rsity of Dosage 00:00:00 [facility] [place] [facility] Polio (IPV/OPV) 2005-09-03 Completed Universit y of 00:00:00 [facility] 2005-09-03 Completed University of Encephalitis 00:00:00 [facility] Hep B, Adol or Pedi 2005-09-03 Completed Unive rsity of Dosage 00:00:00 [facility] [place] [facility] Polio (IPV/OPV) 2005-09-03 Completed Universit y of 00:00:00 [facility] 2005-09-03 Completed University of Encephalitis 00:00:00 [facility] Hep B, Adol or Pedi 2005-09-03 Completed Unive rsity of Dosage 00:00:00 [facility] [place] [facility] Td 2005-08-05 Completed University of 00:00:00 [facility] Typhoid, 2005-08-05 Completed University of Unspecified 00:00:00 [facility] HEPATITIS A 2005-08-05 Completed University of 00:00:00 [facility] Branch Hep B, Adol or Pedi 2005-08-05 Completed Unive rsity of Dosage 00:00:00 [place] [facility] Td 2005-08-05 Completed University of 00:00:00 [facility] Branch Typhoid, 2005-08-05 Completed University of Unspecified 00:00:00 [facility] Formulation Branch HEPATITIS A 2005-08-05 Completed University of 00:00:00 [facility] Branch Hep B, Adol or Pedi 2005-08-05 Completed Unive rsity of Dosage 00:00:00 [facility] [place] [facility] Td 2005-08-05 Completed University of 00:00:00 [facility] Branch Typhoid, 2005-08-05 Completed University of Unspecified 00:00:00 [facility] Formulation Branch HEPATITIS A 2005-08-05 Completed University of 00:00:00 [facility] Branch Hep B, Adol or Pedi 2005-08-05 Completed Unive rsity of Dosage 00:00:00 [facility] Td 2005-08-05 Completed University of 00:00:00 [facility] Typhoid 2005-08-05 Completed University of 00:00:00 [facility] HEPATITIS A 2005-08-05 Completed University of 00:00:00 [facility] Branch Hep B, Adol or Pedi 2005-08-05 Completed Unive rsity of Dosage 00:00:00 [facility] [place] [facility] Td 2005-08-05 Completed University of 00:00:00 [facility] Branch Typhoid 2005-08-05 Completed University of 00:00:00 [facility] HEPATITIS A 2005-08-05 Completed University of 00:00:00 [facility] Branch Hep B, Adol or Pedi 2005-08-05 Completed Unive rsity of Dosage 00:00:00 [facility] [place] [facility] Td 1997-12-06 Completed University of 00:00:00 [facility] Branch HEPATITIS A 1997-12-06 Completed University of 00:00:00 [place] [facility] Td 1997-12-06 Completed University of 00:00:00 [place] [facility] HEPATITIS A 1997-12-06 Completed University of 00:00:00 [place] [facility] Td 1997-12-06 Completed University of 00:00:00 [place] [facility] HEPATITIS A 1997-12-06 Completed University of 00:00:00 [place] [facility] Td 1997-12-06 Completed University of 00:00:00 [place] [facility] HEPATITIS A 1997-12-06 Completed University of 00:00:00 [facility] [place] [facility] Td 1997-12-06 Completed University of 00:00:00 [facility] HEPATITIS A 1997-12-06 Completed University of 00:00:00 [facility] Cholera, Live 1997-11-29 Completed University of Attenuated 00:00:00 [facility] Branch Cholera, Live 1997-11-29 Completed University of Attenuated 00:00:00 [place] [facility] Cholera, Live 1997-11-29 Completed University of Attenuated 00:00:00 [facility] Branch Cholera, Live 1997-11-29 Completed University of Attenuated 00:00:00 [facility] Branch Cholera, Live 1997-11-29 Completed University of Attenuated 00:00:00 [facility] Procedures Procedure Date / Time Performing Clinician Source Performed BI SCREENING 2019-08-07 15:11:00 Nighat Pastor [facility] TOMOSYNTHESIS BILATERAL Medical Branch ASSIGNMENT OF BENEFITS 2019-08-07 14:38:36 Doctor Unassigned, No [facility] Medical Branch AUTHORIZATION FOR 2010-10-30 05:01:00 Doctor Unassigned, No [facility] RELEASE OF [facility] Name Medical Branch Encounters Start End Encounter Admission Attending Care Care Encounter Source Date/Time Date/Time Type Type Clinicians Facility Department ID 2020-10-07 2020-10-07 Outpatient CECILE PATRICA, [facility] [id number] [facility] 12:00:00 12:00:00 [place] [address] [facility] 2020-09-09 2020-09-09 Patient [facility] [id number] Univers 00:00:00 00:00:00 Outreach Tee PRIMARY [id number] i ty of [facility] [id number] [place] [id number] Md dical 388 Branch 2020-01-30 2020-01-30 Telephone [facility] [id number] Univers 00:00:00 00:00:00 Nighat Cooper [id number] [place]y [place] [id number] [place] [id number] Md dical nal 044 Branch Building 2019-08-07 2019-08-07 Hospital [facility] [id number] Univers 08:40:00 23:59:00 Encounter Nighat Cooper [id number] [place]y of [place] [id number] [place] [facility] [id number] [facility] 800 Branch 2019-08-07 2019-08-07 Orders Doctor BRAULIO [id number] Univers 00:00:00 00:00:00 Only Unassigned, MARIANELA [id number] ity of [place] [facility] [id number] Yemi as [id number] [facility] 009 Branch 2010-10-30 2010-10-30 Orders Doctor BRAULIO [id number] Univers 00:00:00 00:00:00 Only Unassigned, MARIANELA [id number] ity of [place] [facility] [id number] Yemi as [id number] [facility] 009 [place] Results Test Description Test Time Test Comments Results Result [facility] e Comments BI SCREENING Examination:BI Universi ty of TOMOSYNTHESIS 3 SCREENING [place] Medic al BILATERAL 21:22:07 TOMOSYNTHESIS Branch BILATERAL [...]
[2021-06-23] MEDS ORDERED: DIPHENHYDRAMINE 50 MG/ML VIAL ONE (02:11)
[2021-06-23] MEDS ORDERED: FAMOTIDINE 20 MG/2 ML VIAL IV ONE (02:12)
[2021-06-23] MEDS ORDERED: dexAMETHasone 10 MG/ML VIAL ONE (02:12)
--- NOTE | 2021-06-23 02:42 | ER ---
Nurse's Notes [facility] Name: yKlee Jaimes Age: 71 yrs Sex: Female : 1950 Arrival Date: 06/23/2021 Time: 01:32 Bed 15 Private MD: Diagnosis: Urticaria, unspecified Presentation: 06/23 01:51 Chief complaint: Patient states: Hives . Hives in the mouth and throats. No new meds . sv1 Allergic to Cats, horses and ambrocio cedar. Coronavirus screen: Vaccine status: Patient reports receiving the 2nd dose of the covid vaccine. Client denies travel out of the [place] in the last 14 days. 01:51 Method Of Arrival: Ambulatory sv1 01:58 Ebola Screen: No symptoms or risks identified at this time. Onset: The symptoms/episode sv1 began/occurred acutely. Anaphylaxis evaluation, no signs or symptoms of anaphylaxis were noted. Initial Sepsis Screen: Does the patient meet any 2 criteria? No. Patient's initial sepsis screen is negative. Risk Assessment: Do you want to hurt yourself or someone else? Patient reports no desire to harm self or others. Onset of symptoms was June 23, 2021 at 00:15. 01:58 Acuity: APRIL 3 sv1 01:59 Initial Sepsis Screen: Does the patient have a suspected source of infection? No. sv1 Patient's initial sepsis screen is negative. Triage Assessment: 01:55 General: Appears distressed, uncomfortable, well groomed. Pain: Denies pain. sv1 01:58 General: Behavior is cooperative, anxious. sv1 Historical: - Allergies: 01:53 Erythromycin; sv1 - Home Meds: 01:53 amlodipine 10 mg tab once daily for hypertension [Active]; losartan 100 mg Oral tab sv1 once daily for hypertension [Active]; - PMHx: 01:53 Hypertension; sv1 - Immunization history:: Adult Immunizations up to date. - Social history:: Smoking status: Patient denies any tobacco usage or history of. Screenin:56 Abuse screen: None. Nutritional screening: No deficits noted. Tuberculosis screening: sv1 No symptoms or risk factors identified. Fall Risk None identified. Assessment: 01:59 Respiratory: Airway is patent Respiratory effort is even, unlabored. sv1 02:00 Respiratory: Breath sounds are clear. sv1 02:47 Reassessment: medicated the patient as ordered. The patientv tolerated her medicationsm sv1 well. . 03:31 Reassessment: Tolerated meds well. Her itching has become better. Her skin appears less sv1 red. Cleared for discharge to home by the provider.. Vital Signs: 01:55 BP 143 / 83; Pulse 75; Resp 20; Temp 98.1; Pulse Ox 98% 0 lpm ; sv1 03:30 BP 116 / 95; Pulse 66; Resp 17; Temp 98.1; Pulse Ox 95% 0 lpm ; sv1 ED Course: 01:32 Patient arrived in ED. ja2 01:37 Talon Perez NP is PHCP. pm1 01:37 Cade Guadalupe MD is Attending Physician. pm1 01:51 Tony Aparicio, MAC is Primary Nurse. sv1 01:55 Arm band placed on left wrist. sv1 01:56 Patient has correct armband on for positive identification. Bed in low position. Call sv1 light in reach. Side rails up X 1. 01:56 No provider procedures requiring assistance completed. Patient did not have IV access sv1 during this emergency room visit. 01:58 Triage completed. sv1 Administered Medications: 02:46 Drug: Benadryl (diphenhydrAMINE) 25 mg Route: IVP; Site: right antecubital; sv1 03:34 Follow up: Response: No adverse reaction sv1 02:46 Drug: Decadron - Dexamethasone 10 mg Route: IVP; Site: right antecubital; sv1 03:34 Follow up: Response: No adverse reaction sv1 02:47 Drug: Pepcid (famotidine) 20 mg Route: IVP; Site: right antecubital; sv1 03:34 Follow up: Response: No adverse reaction sv1 Outcome: 02:42 Discharge ordered by . pm1 03:33 Discharged to home ambulatory. sv1 03:33 Condition: improved 03:33 Discharge instructions given to patient. 03:36 Patient left the ED. sv1 Signatures: Talon Perez NP [employer] pm1 Kim Puente ja2 Tony Aparicio, RN RN sv1
--- NOTE | 2021-06-23 02:43 | EDPHYS ---
Physician Documentation [facility] Name: Kylee Jaimes Age: 71 yrs Sex: Female : 1950 Arrival Date: 06/23/2021 Time: 01:32 Bed 15 Private MD: ED Physician Cade Guadalupe HPI: 06/23 02:29 This 71 yrs old Female presents to ER via Ambulatory with complaints of Hives. pm1 02:29 The patient's rash thought to be caused by Contact allergy possibly from her new bed pm1 sheets made from bamboo. The rash is located on the body diffusely. The rash can be described as urticarial. Onset: The symptoms/episode began/occurred 3 day(s) ago. Associated signs and symptoms: Pertinent positives: itching, Pertinent negatives: difficulty breathing, fever, swelling of lips, swelling of throat, swelling of tongue, vomiting, wheezing. Severity of symptoms: in the emergency department the symptoms are unchanged. The patient has been recently seen at the [facility] Emergency Department, yesterday, for similar complaints. Historical: - Allergies: 01:53 Erythromycin; sv1 - Home Meds: 01:53 amlodipine 10 mg tab once daily for hypertension [Active]; losartan 100 mg Oral tab sv1 once daily for hypertension [Active]; - PMHx: 01:53 Hypertension; sv1 - Immunization history:: Adult Immunizations up to date. - Social history:: Smoking status: Patient denies any tobacco usage or history of. ROS: 02:29 Constitutional: Negative for fever, chills, and weight loss, Cardiovascular: Negative pm1 for chest pain, palpitations, and edema, Respiratory: Negative for shortness of breath, cough, wheezing, and pleuritic chest pain, MS/Extremity: Negative for injury and deformity. 02:29 ENT: Negative for injury, pain, and discharge, Neck: Negative for injury, pain, and swelling, Neuro: Negative for headache, weakness, numbness, tingling, and seizure. 02:29 Skin: Positive for rash, diffusely. 02:29 All other systems are negative. Exam: 02:29 Constitutional: This is a well developed, well nourished patient who is awake, alert, pm1 and in no acute distress. Head/Face: Normocephalic, atraumatic. 02:29 Back: No spinal tenderness. No costovertebral tenderness. Full range of motion. 02:29 Cardiovascular: Exam negative for acute changes, Rate: normal, Rhythm: regular, Pulses: no pulse deficits are appreciated. 02:29 Respiratory: Exam negative for acute changes, respiratory distress, shortness of breath, Breath sounds: are clear throughout. 02:29 Skin: consistent with urticaria, and is diffusely located. 02:29 Neuro: Exam negative for acute changes, Orientation: is normal, Mentation: is normal, Motor: is normal, moves all fours, Sensation: is normal, no obvious gross deficits, Gait: is steady, at a normal pace, without difficulty. Vital Signs: 01:55 BP 143 / 83; Pulse 75; Resp 20; Temp 98.1; Pulse Ox 98% 0 lpm ; sv1 03:30 BP 116 / 95; Pulse 66; Resp 17; Temp 98.1; Pulse Ox 95% 0 lpm ; sv1 MDM: 01:37 Patient medically screened. pm1 02:31 Data reviewed: vital signs. Data interpreted: Pulse oximetry: on room air is 98 %. pm1 Interpretation: normal. 02:40 Counseling: I had a detailed discussion with the patient and/or guardian regarding: the pm1 historical points, exam findings, and any diagnostic results supporting the discharge/admit diagnosis, the need for outpatient follow up, an allergy/welding specialist, to return to the emergency department if symptoms worsen or persist or if there are any questions or concerns that arise at home, stop continued exposure to new bed sheets, which appears to be the allergen. 06/23 01:57 Order name: IV Saline Lock; Complete Time: 02:27 pm1 Administered Medications: 02:46 Drug: Benadryl (diphenhydrAMINE) 25 mg Route: IVP; Site: right antecubital; sv1 03:34 Follow up: Response: No adverse reaction sv1 02:46 Drug: Decadron - Dexamethasone 10 mg Route: IVP; Site: right antecubital; sv1 03:34 Follow up: Response: No adverse reaction sv1 02:47 Drug: Pepcid (famotidine) 20 mg Route: IVP; Site: right antecubital; sv1 03:34 Follow up: Response: No adverse reaction sv1 Disposition: 04:03 Co-signature as Attending Physician, Cade Guadalupe MD. [email or web address] Disposition Summary: 06/23/21 02:42 Discharge Ordered Location: Home pm1 Problem: new pm1 Symptoms: have improved pm1 Condition: Stable pm1 Diagnosis - Urticaria, unspecified pm1 Followup: pm1 - With: Emergency Department - When: As needed - Reason: Worsening of condition Followup: pm1 - With: Private Physician - When: 2 - 3 days - Reason: Recheck today's complaints, Continuance of care, Re-evaluation by your physician Discharge Instructions: - Discharge Summary Sheet pm1 - Hives pm1 Forms: - Medication Reconciliation Form pm1 - Thank You Letter pm1 - Antibiotic Education pm1 - Prescription Opioid Use pm1 Signatures: Talon Perez, MANAGING PARTNER MANAGING PARTNER pm1 Cade Guadalupe MD MD [email or web address] Tony Aparicio RN RN sv1
[2021-06-23 03:41] VITALS: TEMP 98.1
[2021-06-23 03:43] VITALS: BP 116/95; O2SAT 95
== END 2021-06-23 03:36 | disposition home or self-care (01) ==
LOC: ER 01:27
DX: L50.9 Urticaria, unspecified (principal); I10 Essential (primary) hypertension; Z88.3 Allergy status to other anti-infective agents
CPT/HCPCS: 96375; 96374; 99283; J1200; J1100